=== PATIENT | male | born 1955 | race Caucasian/White ===

== ENCOUNTER → 2016-08-05 | Outpatient (CLI) | payer BC ==
[~2016-08-05] MED LIST: ASPI81TA25 PO; B-CO1CAP17 PO; BNC20 PO; CANA1TAB3 PO; CHOL100010 PO; EXEN1INJ3 SQ; FOLI1TAB7 PO; GLIM2TAB2 PO; METF-382 PO; SAW450CA5 PO; SYN200 PO; ZCR40 PO; ZTA10 PO
--- NOTE | 2016-08-05 08:18 | DIAGNOSTIC IMAGING REPORT ---
KUB CLINICAL HISTORY: N20.0 [id number] COMPARISON STUDY: 01/16/2016 FINDINGS: There is no pathologic bowel dilatation. There is a 3 mm calcification projected over the lower pole the right kidney consistent with a calculus. There is a suspected faint mid pole left renal calculus. IMPRESSION: 1. Bilateral nephrolithiasis. 2. No evidence of pathologic bowel dilatation. Electronically signed by: Roque Woodward M.D. 08/05/2016 8:17 AM Dictated Date/Time: 08/05/2016 8:16 AM
== END | disposition home or self-care (01) ==
LOC: C.RAD 07:47
PROVIDERS: ATTEND Urology
DX: N20.0 Calculus of kidney (principal)